=== PATIENT | female | born 1950 | race Caucasian/White ===

== ENCOUNTER 2016-11-01 11:58 | Outpatient (CLI) | payer OTHER ==
--- NOTE | 2016-11-01 13:23 | DIAGNOSTIC IMAGING REPORT ---
PROCEDURE: DEXA BONE DENSITY STUDY CLINICAL INDICATION: SCREENING FOR OSTEOPOROSIS COMPARISON: DEXA 08/10/2007 FINDINGS: LUMBAR SPINE: Bone mineral density 1.015 g/cm2, T score -0.3 normal which represents a 1% decrease from the previous study LEFT HIP: Bone mineral density 0.990 g/cm2, T score 0.4 normal which represents a 4.6% improvement from the previous study LEFT FEMORAL NECK: Bone mineral density 0.700 g/cm2, T score -1.3 osteopenia which represents a 7.6% decrease from the previous study FRACTURE RISK CALCULATION ( when applicable): 10-year fracture risk of a major osteoporotic fracture 8% and of a hip fracture 0.7% (T score greater or equal to -1.0 to: NORMAL) (T score from -1.1 to -2.4: OSTEOPENIA) (T score ess than or equal to -2.5: OSTEOPOROSIS) IMPRESSION: 1. Left femoral neck osteopenia which represents a 7.6% decrease from the previous study. 2. 10-year of major fracture risk of 8% and a hip fracture risk 0.7%
== END 2016-11-01 23:00 ==
LOC: XR SRH 11:58
DX: M85.88 Other specified disorders of bone density and structure, other site (principal)

== ENCOUNTER 2016-11-23 12:14 | Outpatient (CLI) | payer OTHER ==
--- NOTE | 2016-11-23 15:12 | DIAGNOSTIC IMAGING REPORT ---
PROCEDURE: XR CHEST 2 VIEW INDICATION: SOB/FATIGUE/ASTHMA TECHNIQUE: PA and lateral views. COMPARISON: Compared to chest x-rays on 05/04/2013, 02/13/2011, and 01/17/2010. FINDINGS: There is mild bilateral chronic parenchymal scarring. Lungs are otherwise clear. Heart and mediastinum are normal. Mild to moderate degenerative changes of the lower thoracic spine. IMPRESSION: 1. Mild bilateral parenchymal scarring in the lungs. 2. Otherwise negative chest.
== END 2016-11-23 23:00 ==
LOC: XR SRH 12:14
DX: J98.4 Other disorders of lung (principal)